=== PATIENT | female | born 1990 | race Caucasian/White ===

== ENCOUNTER 2019-04-14 17:56 | Emergency (ER) | payer OTHER ==
[~2019-04-14] VITALS: Ht 160 cm; Wt 48.1 kg
[2019-04-14] MEDS ORDERED: ALEGRA (18:21)
== END 2019-04-14 21:10 | disposition home or self-care (01) ==
LOC: ER 17:56
DX: H61.21 Impacted cerumen, right ear (principal); H53.451 Other localized visual field defect, right eye; J32.8 Other chronic sinusitis; R00.2 Palpitations

== ENCOUNTER 2019-04-15 11:52 | Emergency (ER) | payer OTHER ==
[~2019-04-15] VITALS: Ht 160 cm; Wt 48.1 kg
[~2019-04-15 11:52] MED LIST: ALEGRA
== END 2019-04-15 15:30 | disposition home or self-care (01) ==
LOC: ER 11:52
DX: H61.21 Impacted cerumen, right ear (principal); F06.4 Anxiety disorder due to known physiological condition; H61.391 Other acquired stenosis of right external ear canal

== ENCOUNTER 2019-07-21 09:28 | Emergency (ER) | payer OTHER ==
[~2019-07-21] VITALS: Ht 160 cm; Wt 46.7 kg
[2019-07-21] MEDS ORDERED: ANUSOL-HC30 G2 TOP (16:33)
== END 2019-07-21 17:36 | disposition home or self-care (01) ==
LOC: ER 09:28
DX: A08.8 Other specified intestinal infections (principal); K64.8 Other hemorrhoids